=== PATIENT | male | born 1985 | race Caucasian/White ===

== ENCOUNTER → 2022-09-24 | Outpatient (REF) | payer OTHER | LOC: M LAB REF 17:39 | PROVIDERS: ATTEND Surgery | DX: D22.5 Melanocytic nevi of trunk (principal) ==

== ENCOUNTER → 2022-10-11 | Outpatient (REF) | payer OTHER | LOC: M LAB REF 17:29 | PROVIDERS: ATTEND Surgery | DX: D48.5 Neoplasm of uncertain behavior of skin (principal) ==

== ENCOUNTER → 2024-02-24 | Outpatient (REF) | payer OTHER | LOC: M LAB REF 16:44 | PROVIDERS: ATTEND Surgery | DX: D17.1 Benign lipomatous neoplasm of skin and subcutaneous tissue of trunk (principal); D17.21 Benign lipomatous neoplasm of skin and subcutaneous tissue of right arm ==

== ENCOUNTER → 2024-03-06 | Outpatient (REF) | payer OTHER | LOC: M LAB REF 15:27 | PROVIDERS: ATTEND Surgery | DX: D17.23 Benign lipomatous neoplasm of skin and subcutaneous tissue of right leg (principal) ==